=== PATIENT | female | born 1980 | race Caucasian/White ===

== ENCOUNTER 2017-06-03 08:16 | Emergency (ER) | payer MEDICAID ==
[2017-06-03 09:12] LABS: BASOPHIL % 0.4 % (0-2); PLATELET COUNT 139 x10^3mcL (130-400)
[2017-06-03 09:15] LABS: RED CELL DISTRIBUTION WIDTH 20.7 % (11.5-14.5)
[2017-06-03 09:17] LABS: CARBON DIOXIDE 26.3 mmol/L (21-32); CHLORIDE SERUM 100 mmol/L (98-107); CREATININE SERUM 0.6 mg/dL (0.6-1.0); GFR1 > 60 mL/min; GLUCOSE SERUM 106 mg/dL (74-106); POTASSIUM SERUM 3.9 mmol/L (3.5-5.1); SODIUM SERUM 135 mmol/L (136-145)
[2017-06-03 09:21] LABS: rbc morphology (normal/abnorm) ABNORMAL (NORMAL)
[2017-06-03 09:22] LABS: ALBUMIN 3.7 g/dL (3.4-5.0); ALKALINE PHOSPHATASE 164 U/L (46-116); ALT/SGPT 42 U/L (14-59); AST/SGOT 107 U/L (15-37); TOTAL PROTEIN, SERUM 8.4 g/dL (6.4-8.2)
[2017-06-03 10:14] VITALS: BP 125/76
== END 2017-06-03 10:14 | disposition home or self-care (01) ==
LOC: ED 08:16
PROVIDERS: Emergency Medicine
DX: F10.129 Alcohol abuse with intoxication, unspecified (principal); D64.9 Anemia, unspecified; E86.0 Dehydration; F17.200 Nicotine dependence, unspecified, uncomplicated
CPT/HCPCS: J3411; J3475; J3490; J7030; Q0092

== ENCOUNTER 2017-07-16 15:28 | Emergency (ER) | payer SELFPAY ==
[~2017-07-16] VITALS: Ht 162.6 cm; Wt 84.8 kg
[2017-07-16 16:32] VITALS: BP 134/68
== END 2017-07-16 16:32 | disposition home or self-care (01) ==
LOC: ED 15:28
DX: S23.3XXA Sprain of ligaments of thoracic spine, initial encounter (principal); X50.1XXA Overexertion from prolonged static or awkward postures, initial encounter; Y93.89 Activity, other specified; Y99.8 Other external cause status; Y92.89 Other specified places as the place of occurrence of the external cause
CPT/HCPCS: 72072; J1885

== ENCOUNTER 2017-09-23 08:03 | Emergency (ER) | payer SELFPAY ==
[~2017-09-23] VITALS: Ht 162.6 cm; Wt 81.2 kg
[2017-09-23 09:25] VITALS: BP 137/62
== END 2017-09-23 09:25 | disposition home or self-care (01) ==
LOC: ED 08:03
DX: R50.9 Fever, unspecified (principal); R07.89 Other chest pain; R09.81 Nasal congestion; R05 Cough; M79.1 Myalgia
CPT/HCPCS: J1885

== ENCOUNTER 2019-11-04 08:02 | Emergency (ER) | payer MEDICAID ==
[~2019-11-04] VITALS: Ht 165.1 cm; Wt 82.6 kg
[2019-11-04 08:23] VITALS: Ht 165.1 cm; Wt 82.6 kg
[2019-11-04 09:13] LABS: BASOPHIL % 0.4 % (0-2); PLATELET COUNT 86 x10^3mcL (130-400)
[2019-11-04 09:22] LABS: CALCIUM 8.5 mg/dL (8.5-10.1); CARBON DIOXIDE 26.1 mmol/L (21-32); CHLORIDE SERUM 102 mmol/L (98-107); CREATININE SERUM 0.6 mg/dL (0.6-1.0); GFR1 > 60 mL/min; GLUCOSE SERUM 109 mg/dL (74-106); POTASSIUM SERUM 3.7 mmol/L (3.5-5.1); SODIUM SERUM 136 mmol/L (136-145)
[2019-11-04 11:16] LABS: T4(THYROXINE) 9.2 ug/dL (4.7-13.3)
[2019-11-04 15:07] VITALS: BP 121/76
== END 2019-11-04 15:09 | disposition home or self-care (01) ==
LOC: ED 08:02
PROVIDERS: Emergency Medicine
DX: N93.8 Other specified abnormal uterine and vaginal bleeding (principal); D64.9 Anemia, unspecified; D69.6 Thrombocytopenia, unspecified
CPT/HCPCS: 36415

== ENCOUNTER 2020-08-22 05:54 | Emergency (ER) | payer OTHER ==
[~2020-08-22] VITALS: Ht 162.6 cm; Wt 80.7 kg
[2020-08-22 06:09] VITALS: Ht 162.6 cm; Wt 80.7 kg
[2020-08-22 06:39] LABS: CALCIUM 8.2 mg/dL (8.5-10.1); CHLORIDE SERUM 102 mmol/L (98-107); CREATININE SERUM 0.6 mg/dL (0.6-1.0); GFR1 > 60 mL/min; GLUCOSE SERUM 133 mg/dL (74-106); POTASSIUM SERUM 3.5 mmol/L (3.5-5.1); SODIUM SERUM 136 mmol/L (136-145)
[2020-08-22 06:44] LABS: ALKALINE PHOSPHATASE 263 U/L (46-116); ALT/SGPT 20 U/L (14-59); BILIRUBIN TOTAL 4.25 mg/dL (0.20-1.00); TOTAL PROTEIN, SERUM 7.5 g/dL (6.4-8.2)
[2020-08-22 07:11] LABS: ALBUMIN 2.3 g/dL (3.4-5.0)
[2020-08-22 07:15] LABS: BASOPHIL % 0.2 % (0-2); PLATELET COUNT 172 x10^3mcL (130-400)
[2020-08-22 07:16] LABS: RED CELL DISTRIBUTION WIDTH 17.1 % (11.5-14.5)
[2020-08-22 07:20] LABS: AST/SGOT 119 U/L (15-37)
[2020-08-22 08:46] VITALS: BP 122/67
== END 2020-08-22 08:46 | disposition home or self-care (01) ==
LOC: ED 05:54
PROVIDERS: Emergency Medicine
DX: K74.60 Unspecified cirrhosis of liver (principal); Z86.2 Personal history of diseases of the blood and blood-forming organs and certain disorders involving the immune mechanism; Z90.49 Acquired absence of other specified parts of digestive tract
CPT/HCPCS: 83880; Q0092

== ENCOUNTER 2020-08-28 08:58 | Emergency (ER) | payer OTHER ==
[~2020-08-28] VITALS: Ht 162.6 cm; Wt 82.6 kg
[2020-08-28 09:04] VITALS: Ht 162.6 cm; Wt 82.6 kg
[2020-08-28 10:17] LABS: CARBON DIOXIDE 26.9 mmol/L (21-32); CHLORIDE SERUM 105 mmol/L (98-107); CREATININE SERUM 0.7 mg/dL (0.6-1.0); GFR1 > 60 mL/min; GLUCOSE SERUM 127 mg/dL (74-106); PLATELET COUNT 136 x10^3mcL (130-400); POTASSIUM SERUM 3.8 mmol/L (3.5-5.1); SODIUM SERUM 135 mmol/L (136-145)
[2020-08-28 10:21] LABS: ALKALINE PHOSPHATASE 267 U/L (46-116); ALT/SGPT 16 U/L (14-59); AST/SGOT 105 U/L (15-37); BILIRUBIN TOTAL 3.99 mg/dL (0.20-1.00); LIPASE 86 IU/L (73-393); TOTAL PROTEIN, SERUM 7.1 g/dL (6.4-8.2)
[2020-08-28 10:32] LABS: ALBUMIN 2.2 g/dL (3.4-5.0)
[2020-08-28 10:41] LABS: BASOPHIL % 0 % (0-2); RED CELL DISTRIBUTION WIDTH 16.9 % (11.5-14.5)
[2020-08-28 12:05] VITALS: BP 120/76
== END 2020-08-28 12:05 | disposition home or self-care (01) ==
LOC: ED 08:58
PROVIDERS: Emergency Medicine
DX: R10.812 Left upper quadrant abdominal tenderness (principal); R10.816 Epigastric abdominal tenderness; Z90.49 Acquired absence of other specified parts of digestive tract; Z86.2 Personal history of diseases of the blood and blood-forming organs and certain disorders involving the immune mechanism
CPT/HCPCS: J2270; J2405

== ENCOUNTER 2020-09-01 05:46 | Emergency (ER) | payer OTHER ==
[~2020-09-01] VITALS: Ht 165.1 cm; Wt 82.1 kg
[2020-09-01 06:04] VITALS: Ht 165.1 cm; Wt 82.1 kg
[2020-09-01 07:26] LABS: BASOPHIL % 0.6 % (0-2)
[2020-09-01 07:27] LABS: PLATELET COUNT 117 x10^3mcL (130-400); RED CELL DISTRIBUTION WIDTH 16.5 % (11.5-14.5)
[2020-09-01 07:34] LABS: ALKALINE PHOSPHATASE 254 U/L (46-116); ALT/SGPT 14 U/L (14-59); AST/SGOT 82 U/L (15-37); BILIRUBIN TOTAL 3.7 mg/dL (0.20-1.00); CARBON DIOXIDE 27.2 mmol/L (21-32); CHLORIDE SERUM 101 mmol/L (98-107); CREATININE SERUM 0.6 mg/dL (0.6-1.0); GFR1 > 60 mL/min; GLUCOSE SERUM 111 mg/dL (74-106); LIPASE 66 IU/L (73-393); SODIUM SERUM 131 mmol/L (136-145); TOTAL PROTEIN, SERUM 6.9 g/dL (6.4-8.2)
[2020-09-01 07:43] LABS: ALBUMIN 2.1 g/dL (3.4-5.0)
[2020-09-01 09:15] VITALS: BP 122/78
== END 2020-09-01 09:15 | disposition home or self-care (01) ==
LOC: ED 05:46
PROVIDERS: Emergency Medicine
DX: K74.60 Unspecified cirrhosis of liver (principal); R18.8 Other ascites; Z88.6 Allergy status to analgesic agent; Z90.49 Acquired absence of other specified parts of digestive tract
CPT/HCPCS: J2270; J2405

== ENCOUNTER 2020-09-14 18:44 | Emergency (ER) | payer OTHER ==
[~2020-09-14] VITALS: Ht 162.6 cm; Wt 83.0 kg
[2020-09-14 18:48] VITALS: Ht 162.6 cm; Wt 83.0 kg
[2020-09-14 19:44] LABS: BASOPHIL % 0.8 % (0-2); PLATELET COUNT 227 x10^3mcL (130-400)
[2020-09-14 19:51] LABS: RED CELL DISTRIBUTION WIDTH 16.5 % (11.5-14.5)
[2020-09-14 19:54] LABS: CALCIUM 7.6 mg/dL (8.5-10.1); CARBON DIOXIDE 19.9 mmol/L (21-32); CHLORIDE SERUM 105 mmol/L (98-107); CREATININE SERUM 0.9 mg/dL (0.6-1.0); GFR1 > 60 mL/min; GLUCOSE SERUM 201 mg/dL (74-106); POTASSIUM SERUM 3.2 mmol/L (3.5-5.1); SODIUM SERUM 137 mmol/L (136-145)
[2020-09-14 19:58] LABS: ALKALINE PHOSPHATASE 164 U/L (46-116); ALT/SGPT 9 U/L (14-59); AST/SGOT 67 U/L (15-37); BILIRUBIN TOTAL 2.6 mg/dL (0.20-1.00); LIPASE 71 IU/L (73-393)
[2020-09-14 19:59] LABS: ALBUMIN 1.7 g/dL (3.4-5.0); AMYLASE 14 U/L (25-115); TOTAL PROTEIN, SERUM 5.8 g/dL (6.4-8.2)
[2020-09-14 20:27] VITALS: BP 80/63
== END 2020-09-15 04:28 | disposition expired ==
LOC: ED 18:44
PROVIDERS: Emergency Medicine
DX: I46.9 Cardiac arrest, cause unspecified (principal); K72.90 Hepatic failure, unspecified without coma
CPT/HCPCS: 87046; 87046-59; J0696; J1885; J2405; J2765; J3490; J7060; P9047